=== PATIENT | male | born 1980 | race Caucasian/White ===

== ENCOUNTER 2018-04-06 13:42 | Emergency (ER) | payer OTHER, SELFPAY ==
[2018-04-06 13:59] VITALS: BP 121/81; PULSE 74; RESP 16; TEMP 36.7; O2SAT 97; BMI 29.0
[2018-04-06 17:26] LABS: Add Manual Diff / Slide Review NO; Basophils Percent Auto 0.7 % (0-2); Eosinophils Percent Auto 1.7 % (2-4); Hematocrit 48.8 % (41-53); Hemoglobin 17.2 g/dL (13.5-17.5); Lymphocytes Percent Auto 21.6 % (25-40); Mean Corpuscular HGB Conc 35.3 % (30-36); Mean Corpuscular Hemoglobin 29.2 PG (26-34); Mean Corpuscular Volume 82.9 fL (80-100); Neutrophils Absolute Auto 6700 /uL (3000-5900); Platelet Count 234 X10^3/uL (150-400); White Blood Cell Count 9.7 X10^3/uL (4.5-11.0)
[2018-04-06 17:38] LABS: Alanine Aminotransferase 27 IU/L (21-72); Albumin 4.9 g/dL (3.5-5.0); Albumin Globulin Ratio 1.7 (1.0-2.8); Alkaline Phosphatase 69 U/L (38-126); Aspartate Aminotransferase 25 IU/L (17-59); BUN Creatinine Ratio 15.7 (6-22); Bilirubin Total 0.7 mg/dL (0.2-1.3); Blood Urea Nitrogen 11 mg/dL (9-20); Calcium 9.5 mg/dL (8.4-10.2); Carbon Dioxide 31 mmol/L (22-32); Chloride 102 mmol/L (98-107); Estimated Glomerular Filt Rate > 60.0 mL/min (>60); Globulin 2.9 g/dL (1.7-4.1); Glucose 86 mg/dL (70-100); HEMOLYSIS 17 (0-50); Potassium 4.3 mmol/L (3.4-5.1); Sodium 144 mmol/L (137-145); Total Protein 7.8 g/dL (6.3-8.2)
[2018-04-06 18:26] LABS: HIV 1 and 2 Antibody NEGATIVE (NEGATIVE)
--- NOTE | 2018-04-06 18:39 | PC.NURSE ---
patient check updated patient of wait.
[2018-04-06 18:45] VITALS: BP 115/80; PULSE 66; RESP 16; O2SAT 98
[2018-04-06 19:05] LABS: Urine N gonorrhoeae NOT DETECTED
[2018-04-06 19:06] LABS: Urine Chlamydia NOT DETECTED
--- NOTE | 2018-04-06 19:29 | ED_ITS ---
HPI - General Adult <MARY Anderson - Last Filed: 04/06/18 21:41> General Chief complaint: Blood/Body fluid exposure Stated complaint: POSS HIV EXPOSURE Time Seen by Provider: 04/06/18 16:21 Source: patient Mode of arrival: ambulatory Limitations: no limitations History of Present Illness HPI narrative: 37-year-old male with history of hypertension and is a nonsmoker here for concern of possible exposure to HIV. He states that he cut himself to the inguinal area while he was shaving yesterday. He then reports that he had unprotected and all sex yesterday with another man last night. He states he does not know his partner well and does not know his HIV status. He denies any complaints or pain at today. He desires to have prophylaxis for HIV. He denies any anal bleeding or discomfort today. No other concerns or complaints Related Data Home Medications Medication Instructions Recorded Confirmed lorazepam [Ativan] 2.5 mg #0 07/07/16 propranolol #0 07/07/16 sertraline [Zoloft] 1.5 tab #0 07/07/16 Previous Rx's Medication Instructions Recorded dolutegravir 50 mg PO DAILY #28 tab 04/06/18 emtricitabine-tenofovir (TDF) 1 tab PO DAILY #28 tab 04/06/18 Allergies Allergy/AdvReac Type Severity Reaction Status Date / Time No Known Allergies Allergy Uncoded 04/06/18 14:03 Review of Systems <MAYR Anderson - Last Filed: 04/06/18 21:41> Review of Systems Prophylaxis for HIV exposure Constitutional Denies chills, Denies fever(s), Denies lethargy and Denies weakness Eyes Denies change in vision, Denies eye discharge, Denies irritation and Denies loss of vision ENT Ears, Nose, Mouth, and Throat: Denies change in voice, Denies neck pain and Denies sore throat Cardiovascular Denies chest pain, Denies irregular heart rhythm, Denies lightheadedness, Denies palpitations, Denies dyspnea, Denies dyspnea on exertion and Denies orthopnea Respiratory Denies cough, Denies dyspnea, Denies dyspnea on exertion and Denies wheezing Gastrointestinal Gastrointestinal: Denies abdominal pain, Denies change in bowel habits, Denies diarrhea, Denies nausea and Denies vomiting Genitourinary Denies hematuria, Denies flank pain, Denies urinary incontinence and Denies urinary urgency Musculoskeletal Denies neck pain Integumentary/Breasts Denies pruritus, Denies erythema, Denies rash and Denies wounds Neurologic Denies loss of vision and Denies weakness Endocrine Denies palpitations Hematologic/Lymphatic Denies easy bruising Allergic/Immunologic Denies wheezing Exam <MARY Anderson - Last Filed: 04/06/18 21:41> Initial Vital Signs Initial Vital Signs: Vital Signs Temperature 98.0 F 04/06/18 13:59 Pulse Rate 74 04/06/18 13:59 Respiratory Rate 16 04/06/18 13:59 Blood Pressure 121/81 04/06/18 13:59 Pulse Oximetry 97 04/06/18 13:59 Const General: cooperative and well developed Nutritional Appearance: well nourished Orientation: alert, awake, oriented x3 and not confused HENMT Mouth: oral mucosae normal and moist mucous membranes Eyes Conjunctivae: conjunctivae normal Sclera: sclerae normal Pupils: PERRL EOM: EOM intact bilaterally Resp Effort & Inspection: normal respiratory effort, able to speak in complete sentences, no respiratory distress and no use of accessory muscles Auscultation: clear to auscultation bilaterally, no rales, no rhonchi and no wheezes Cardio Rate: regular rate Rhythm: regular rhythm Heart Sounds: no click, no gallops, no murmurs and no rubs Pulses: normal peripheral pulses GI Inspection: non-distended Palpation: soft, no hepatosplenomegaly, No guarding, No pulsatile mass and No tender Auscultation: normal bowel sounds Skin General: no rashes or lesions noted, No jaundice and No petechiae Neuro General: alert, oriented x3, gait normal and no focal motor deficits Speech: speech normal <Nelson Singh DO - Last Filed: 04/07/18 06:48> Initial Vital Signs Initial Vital Signs: Vital Signs Temperature 98.0 F 04/06/18 13:59 Pulse Rate 74 04/06/18 13:59 Respiratory Rate 16 04/06/18 13:59 Blood Pressure 121/81 04/06/18 13:59 Pulse Oximetry 97 04/06/18 13:59 Course <MARY Anderson - Last Filed: 04/06/18 21:41> Orders Ordered: Discontinued Medications Dolutegravir Sodium (Tivicay) 50 mg PO NOW ONE Stop: 04/06/18 17:48 Emtricitabine/Tenofovir (Truvada 200 Mg-300 Mg Tablet) 1 each PO NOW ONE Stop: 04/06/18 17:48 Vital Signs - 8 hr 04/06/18 13:59 04/06/18 18:45 Temperature 98.0 F Pulse Rate 74 66 Respiratory Rate 16 16 Blood Pressure 121/81 Blood Pressure [Right Arm] 115/80 Pulse Oximetry 97 98 <Nelson Singh DO - Last Filed: 04/07/18 06:48> Orders Ordered: Discontinued Medications Dolutegravir Sodium (Tivicay) 50 mg PO NOW ONE Stop: 04/06/18 17:48 Emtricitabine/Tenofovir (Truvada 200 Mg-300 Mg Tablet) 1 each PO NOW ONE Stop: 04/06/18 17:48 Vital Signs - 8 hr 04/06/18 13:59 04/06/18 18:45 Temperature 98.0 F Pulse Rate 74 66 Respiratory Rate 16 16 Blood Pressure 121/81 Blood Pressure [Right Arm] 115/80 Pulse Oximetry 97 98 Medical Decision Making <MARY Anderson - Last Filed: 04/06/18 21:41> Lab Data Result diagrams: 04/06/18 17:15 04/06/18 17:15 Lab Results 04/06/18 04/06/18 04/06/18 Range/Units 17:15 17:15 17:15 WBC 9.7 (4.5-11.0) X10^3/uL RBC 5.90 (4.5-5.9) X10^6/uL Hgb 17.2 (13.5-17.5) g/dL Hct 48.8 (41-53) % MCV 82.9 (80-100) fL MCH 29.2 (26-34) PG MCHC 35.3 (30-36) % RDW 13.0 (11.6-14.8) % Plt Count 234 (150-400) X10^3/uL Neut % (Auto) 69.0 (50-75) % Lymph % (Auto) 21.6 L (25-40) % [place] % (Auto) 7.0 (3-14) % Eos % (Auto) 1.7 L (2-4) % Baso % (Auto) 0.7 (0-2) % Neut # (Auto) 6700 H (9640-2969) /uL Sodium 144 (137-145) mmol/L Potassium 4.3 (3.4-5.1) mmol/L Chloride 102 (98-107) mmol/L Carbon Dioxide 31 (22-32) mmol/L BUN 11 (9-20) mg/dL Creatinine 0.70 (0.66-1.25) mg/dL Estimated GFR > 60.0 (>60) mL/min BUN/Creatinine Ratio 15.7 (6-22) Glucose 86 (70-100) mg/dL Calcium 9.5 (8.4-10.2) mg/dL Total Bilirubin 0.7 (0.2-1.3) mg/dL AST 25 (17-59) IU/L ALT 27 (21-72) IU/L Alkaline Phosphatase 69 (38-126) U/L Total Protein 7.8 (6.3-8.2) g/dL Albumin 4.9 (3.5-5.0) g/dL Globulin 2.9 (1.7-4.1) g/dL Albumin/Globulin Ratio 1.7 (1.0-2.8) Ur Chlamydia DNA (PCR) HIV 1&2 Antibody Negative (NEGATIVE) N gonorrhoeae DNA (PCR) 04/06/18 Range/Units 17:20 WBC (4.5-11.0) X10^3/uL RBC (4.5-5.9) X10^6/uL Hgb (13.5-17.5) g/dL Hct (41-53) % MCV (80-100) fL MCH (26-34) PG MCHC (30-36) % RDW (11.6-14.8) % Plt Count (150-400) X10^3/uL Neut % (Auto) (50-75) % Lymph % (Auto) (25-40) % [place] % (Auto) (3-14) % Eos % (Auto) (2-4) % Baso % (Auto) (0-2) % Neut # (Auto) (8229-0093) /uL Sodium (137-145) mmol/L Potassium (3.4-5.1) mmol/L Chloride (98-107) mmol/L Carbon Dioxide (22-32) mmol/L BUN (9-20) mg/dL Creatinine (0.66-1.25) mg/dL Estimated GFR (>60) mL/min BUN/Creatinine Ratio (6-22) Glucose (70-100) mg/dL Calcium (8.4-10.2) mg/dL Total Bilirubin (0.2-1.3) mg/dL AST (17-59) IU/L ALT (21-72) IU/L Alkaline Phosphatase (38-126) U/L Total Protein (6.3-8.2) g/dL Albumin (3.5-5.0) g/dL Globulin (1.7-4.1) g/dL Albumin/Globulin Ratio (1.0-2.8) Ur Chlamydia DNA (PCR) Not detected HIV 1&2 Antibody (NEGATIVE) N gonorrhoeae DNA (PCR) Not detected MDM Narrative Medical decision making narrative: CBC and Chem panel were obtained and were unremarkable. HIV antibodies were obtained were negative for both HIV 1 and 2 urine Chlamydia and gonorrhea were obtained and were negative. Hepatitis studies are pending. He is prescribed dolutegravir and truvada. Follow up with primary care provider next week return emergency room for any worsening symptoms. <Nelson Singh, DO - Last Filed: 04/07/18 06:48> Lab Data Lab Results 04/06/18 04/06/18 04/06/18 Range/Units 17:15 17:15 17:15 WBC 9.7 (4.5-11.0) X10^3/uL RBC 5.90 (4.5-5.9) X10^6/uL Hgb 17.2 (13.5-17.5) g/dL Hct 48.8 (41-53) % MCV 82.9 (80-100) fL MCH 29.2 (26-34) PG MCHC 35.3 (30-36) % RDW 13.0 (11.6-14.8) % Plt Count 234 (150-400) X10^3/uL Neut % (Auto) 69.0 (50-75) % Lymph % (Auto) 21.6 L (25-40) % [place] % (Auto) 7.0 (3-14) % Eos % (Auto) 1.7 L (2-4) % Baso % (Auto) 0.7 (0-2) % Neut # (Auto) 6700 H (9645-2587) /uL Sodium 144 (137-145) mmol/L Potassium 4.3 (3.4-5.1) mmol/L Chloride 102 (98-107) mmol/L Carbon Dioxide 31 (22-32) mmol/L BUN 11 (9-20) mg/dL Creatinine 0.70 (0.66-1.25) mg/dL Estimated GFR > 60.0 (>60) mL/min BUN/Creatinine Ratio 15.7 (6-22) Glucose 86 (70-100) mg/dL Calcium 9.5 (8.4-10.2) mg/dL Total Bilirubin 0.7 (0.2-1.3) mg/dL AST 25 (17-59) IU/L ALT 27 (21-72) IU/L Alkaline Phosphatase 69 (38-126) U/L Total Protein 7.8 (6.3-8.2) g/dL Albumin 4.9 (3.5-5.0) g/dL Globulin 2.9 (1.7-4.1) g/dL Albumin/Globulin Ratio 1.7 (1.0-2.8) Ur Chlamydia DNA (PCR) HIV 1&2 Antibody Negative (NEGATIVE) N gonorrhoeae DNA (PCR) 04/06/18 Range/Units 17:20 WBC (4.5-11.0) X10^3/uL RBC (4.5-5.9) X10^6/uL Hgb (13.5-17.5) g/dL Hct (41-53) % MCV (80-100) fL MCH (26-34) PG MCHC (30-36) % RDW (11.6-14.8) % Plt Count (150-400) X10^3/uL Neut % (Auto) (50-75) % Lymph % (Auto) (25-40) % [place] % (Auto) (3-14) % Eos % (Auto) (2-4) % Baso % (Auto) (0-2) % Neut # (Auto) (8677-2394) /uL Sodium (137-145) mmol/L Potassium (3.4-5.1) mmol/L Chloride (98-107) mmol/L Carbon Dioxide (22-32) mmol/L BUN (9-20) mg/dL Creatinine (0.66-1.25) mg/dL Estimated GFR (>60) mL/min BUN/Creatinine Ratio (6-22) Glucose (70-100) mg/dL Calcium (8.4-10.2) mg/dL Total Bilirubin (0.2-1.3) mg/dL AST (17-59) IU/L ALT (21-72) IU/L Alkaline Phosphatase (38-126) U/L Total Protein (6.3-8.2) g/dL Albumin (3.5-5.0) g/dL Globulin (1.7-4.1) g/dL Albumin/Globulin Ratio (1.0-2.8) Ur Chlamydia DNA (PCR) Not detected HIV 1&2 Antibody (NEGATIVE) N gonorrhoeae DNA (PCR) Not detected Discharge Plan Departure Patient Disposition: Home Clinical Impression: Possible exposure to STD Discharge Date/Time: 04/06/18 19:40 Interventions: ED Discharge Assessment Last Done: 04/06/18 19:40 Instructions: DI for HIV Activity Restrictions/Additional Instructions: Laboratory results today were unremarkable. HIV antibodies were negative. Chlamydia and gonorrhea test were negative. You are provided with prescription for HIV prophylaxis use as directed. Follow up with primary care provider next week for re-evaluation. For any worsening symptoms return to the emergency room. Prescriptions: New emtricitabine-tenofovir (TDF) 200-300 mg tablet 1 tab PO DAILY Qty: 28 RF: 0 dolutegravir 50 mg tablet 50 mg PO DAILY Qty: 28 RF: 0 No Action sertraline [Zoloft] 100 MG tablet 1.5 tab Qty: 0 RF: 0 propranolol 40 MG tablet Qty: 0 RF: 0 lorazepam [Ativan] 1 MG tablet 2.5 mg Qty: 0 RF: 0 Referrals: Nirmala Dawkins MD [Primary Care Provider] - <Nelson Singh DO - Last Filed: 04/07/18 06:48> Cosign ED Attending Thalia Attestation: I was available for consultation during this patient's emergency department encounter
[2018-04-10 08:21] LABS: Hepatitis A Antibody IgM NONREACTIVE; Hepatitis Acute Panel Interp 0.01; Hepatitis B Core Antibody IgM NONREACTIVE; Hepatitis B Surface Antigen NONREACTIVE; Hepatitis C Antibody NONREACTIVE
== END 2018-04-06 19:40 | disposition home or self-care (01) ==
PROVIDERS: Emergency Provider Nurse Practitioner Family; PCP Family Medicine
DX: Z20.2 Contact with and (suspected) exposure to infections with a predominantly sexual mode of transmission (principal)
CPT/HCPCS: 80053; 80074; 85025; 86703; 87491; 87591; 99282; 99283

== ENCOUNTER → 2020-11-09 10:32 | Outpatient (CLI) | payer OTHER, SELFPAY ==
[2020-11-09] MEDS: COVID-19 VACC #1, MRNA(MOD) 100 MCG/0.5 ML VIAL IM (10:39)
== END ==
PROVIDERS: PCP Family Medicine; Visit Provider Internal Medicine
DX: Z23 Encounter for immunization (principal)
CPT/HCPCS: 0011A; 91301

== ENCOUNTER → 2020-12-08 10:28 | Outpatient (CLI) | payer OTHER, SELFPAY ==
[2020-12-08] MEDS: COVID-19 VACC #2, MRNA(MOD) 100 MCG/0.5 ML VIAL IM (10:39)
== END ==
PROVIDERS: PCP Family Medicine; Visit Provider Internal Medicine
DX: Z23 Encounter for immunization (principal)
CPT/HCPCS: 0012A; 91301

== ENCOUNTER → 2023-03-20 07:52 | Outpatient (CLI) | payer OTHER, SELFPAY ==
[2023-03-20 08:51] LABS: Add Manual Diff / Slide Review NO; Basophils Absolute Auto 100 /uL (0-100); Basophils Percent Auto 0.8 % (0-2); Eosinophils Absolute Auto 200 /uL (0-450); Eosinophils Percent Auto 2.5 % (2-4); Hematocrit 46.1 % (41-53); Hemoglobin 16.1 g/dL (13.5-17.5); Lymphocytes Absolute Auto 1900 /uL (1100-4500); Lymphocytes Percent Auto 25.8 % (25-40); Mean Corpuscular HGB Conc 34.9 % (30-36); Mean Corpuscular Volume 83.1 fL (80-100); Monocytes Absolute Auto 500 /uL (0-900); Monocytes Percent Auto 6.7 % (3-14); Neutrophils Absolute Auto 4700 /uL (1500-7000); Neutrophils Percent Auto 64.2 % (50-75); Platelet Count 184 X10^3/uL (150-400); Red Blood Cell Count 5.55 X10^6/uL (4.5-5.9); Red Cell Distribution Width 13.1 % (11.6-14.8); White Blood Cell Count 7.3 X10^3/uL (4.5-11.0)
[2023-03-20 09:23] LABS: Alanine Aminotransferase 24 IU/L (<50); Albumin 4.4 g/dL (3.5-5.0); Albumin Globulin Ratio 1.6 (1.0-2.8); Alkaline Phosphatase 64 U/L (38-126); Aspartate Aminotransferase 27 IU/L (17-59); BUN Creatinine Ratio 16.3 (6-22); Bilirubin Total 0.6 mg/dL (0.2-1.3); Blood Urea Nitrogen 13 mg/dL (9-20); Calcium 9.2 mg/dL (8.4-10.2); Carbon Dioxide 27 mmol/L (22-32); Chloride 103 mmol/L (98-107); Cholesterol 187 mg/dL (140-199); Estimated Glomerular Filt Rate > 60 mL/min (>60); Globulin 2.8 g/dL (1.7-4.1); Glucose 95 mg/dL (70-100); HDL Cholesterol 32 mg/dL (40-60); HEMOLYSIS < 15 (0-50); LDL Cholesterol Calculated 102 mg/dL (<100); Potassium 4.4 mmol/L (3.4-5.1); Sodium 138 mmol/L (137-145); Total Protein 7.2 g/dL (6.3-8.2); Triglycerides 263 mg/dL (35-150)
== END ==
PROVIDERS: PCP Family Medicine; Referring Provider Family Medicine; Visit Provider Family Medicine
DX: Z00.00 Encounter for general adult medical examination without abnormal findings (principal)
CPT/HCPCS: 36415; 80053; 80061; 85025

== ENCOUNTER 2024-05-30 11:43 | Emergency (ER) | payer OTHER, SELFPAY ==
[2024-05-30] VITALS (8 sets, daily range): BP systolic 110–140; BP diastolic 71–80; PULSE 57–64; RESP 11–18; TEMP 36.6; O2SAT 93–100; BMI 30.7
--- NOTE | 2024-05-30 12:08 | ED.SOB ---
HPI - SOB/Dyspnea General Chief Complaint: Arrhythmia/Palpitations Stated Complaint: Arrythmia, SOB, dizziness Time Seen by Provider: 05/30/24 12:06 History of Present Illness HPI Narrative: Patient is a 43-year-old male presenting today with just ongoing issues. He has had some sort of arrhythmia for the last 11 years but pretty well-controlled he takes no medications for it he has not had any syncopal episodes. He has had some shortness of breath some dizziness some palpitations. Called his provider today who recommended he come to the ED for evaluation. He denies fever or chills. No chest pain really no new symptoms today. No abdominal pain nausea or vomiting Related Data Home Medications Medication Instructions Recorded Confirmed propranolol 40 mg tablet ##0 07/07/16 03/19/23 sertraline 100 mg tablet (Zoloft) 1.5 tab ##0 07/07/16 03/19/23 lorazepam 1 mg tablet (Ativan) 3 mg PO #0 tabs 03/19/23 03/19/23 Allergies Allergy/AdvReac Type Severity Reaction Status Date / Time No Known Drug Allergies Allergy Verified 03/19/23 11:13 Patient History Medical History Family history of hypertension Generalized anxiety disorder (~1994) Well adult on routine health check Surgical History Anesthesia Status post tonsillectomy and adenoidectomy (1984) Family History Brother Age: 47 Hypertension Father Age: 73 Hypertension Hyperlipidemia Grandfather Cancer Heart disease Stroke Diabetes mellitus Mother Cancer Heart disease Mental health problem Grandfather Heart disease Enlarged heart Grandmother Cancer Lung cancer Hypertension Stroke Grandmother No problems noted. Social History Smoking Status: Never smoker Smoking Status: Never smoker alcohol intake frequency: 0-2 drinks per day Substance Use Type: does not use Exam Initial Vital Signs Initial Vital Signs: Vital Signs Pulse Rate 61 05/30/24 12:08 Respiratory Rate 12 05/30/24 12:08 Pulse Oximetry 100 05/30/24 12:08 GENERAL: Alert well-appearing 43-year-old male and in no acute distress. HEENT: Head atraumatic,EOMI, pupils reactive, face symmetric, moist mucous membranes CARDIOVASCULAR: Regular rate and rhythm without murmurs, rubs or gallops. RESPIRATORY: Breath sounds equal bilaterally, no wheezes rales or rhonchi. ABDOMEN: Soft, nontender. Normoactive bowel sounds all 4 quadrants. No guarding or rebound. EXTREMITIES: Normal range of motion, no clubbing or edema. Neurovascularly intact NEUROLOGICAL: Alert and oriented x4.Normal gait and speech. Cranial nerves II through XII grossly intact. SKIN: Warm, dry, no laceration, no petechiae, no rashes or lesions. Course Orders Ordered: ED Orders 05/30/24 12:15 Complete Blood Count AUTO DIFF Stat Comprehensive Metabolic Panel Stat Magnesium Stat NT-proBNP (BNP-Adult 18+) Stat PTT Partial Thromboplastin Pierre Stat Prothrombin Time INR Stat Troponin & CK Cardiac Panel Stat 05/30/24 12:20 XR chest 1V Stat EKG-12 Lead Stat Vital Signs Vital signs: Vital Signs - 8 hr 05/30/24 12:08 05/30/24 12:13 05/30/24 12:30 Temperature 98 F Pulse Rate 61 62 60 Respiratory Rate 12 18 13 Blood Pressure 140/80 Pulse Oximetry 100 98 98 Oxygen Delivery Method Room Air 05/30/24 13:00 05/30/24 13:30 05/30/24 13:34 Temperature Pulse Rate 60 57 L Respiratory Rate 12 11 L Blood Pressure 119/73 Pulse Oximetry 96 95 Oxygen Delivery Method 05/30/24 13:34 05/30/24 14:00 05/30/24 14:00 Temperature Pulse Rate 61 64 Respiratory Rate 16 13 Blood Pressure 110/71 Pulse Oximetry 94 94 Oxygen Delivery Method 05/30/24 14:19 Temperature Pulse Rate 62 Respiratory Rate 14 Blood Pressure 110/71 Pulse Oximetry 93 Oxygen Delivery Method Room Air MDM - SOB/Dyspnea Lab Data 05/30/24 12:15 05/30/24 12:15 Labs: Lab Results 05/30/24 Range/Units 12:15 WBC 7.3 (4.5-11.0) X10^3/uL RBC 5.55 (4.5-5.9) X10^6/uL Hgb 16.2 (13.5-17.5) g/dL Hct 45.6 (41-53) % MCV 82.2 (80-100) fL MCH 29.1 (26-34) PG MCHC 35.5 (30-36) % RDW 13.2 (11.6-14.8) % Plt Count 201 (150-400) X10^3/uL Neut % (Auto) 65.7 (50-75) % Lymph % (Auto) 25.0 (25-40) % [place] % (Auto) 7.0 (3-14) % Eos % (Auto) 1.7 L (2-4) % Baso % (Auto) 0.6 (0-2) % Neut # (Auto) 4800 (2629-0275) /uL Lymph # (Auto) 1800 (4872-6643) /uL [place] # (Auto) 500 (0-900) /uL Eos # (Auto) 100 (0-450) /uL Baso # (Auto) 0 (0-100) /uL PT 11.6 (9.4-12.5) SECONDS INR 1.0 (0.9-1.3) APTT 33 (25.1-36.5) SECONDS Sodium 139 (137-145) mmol/L Potassium 4.5 (3.4-5.1) mmol/L Chloride 106 (98-107) mmol/L Carbon Dioxide 25 (22-32) mmol/L BUN 15 (9-20) mg/dL Creatinine 0.67 (0.66-1.25) mg/dL Estimated GFR > 60 (>60) mL/min BUN/Creatinine Ratio 22.4 H (6-22) Glucose 97 (70-100) mg/dL Calcium 9.2 (8.4-10.2) mg/dL Magnesium 2.0 (1.6-2.3) mg/dL Total Bilirubin 0.6 (0.2-1.3) mg/dL AST 29 (17-59) IU/L ALT 21 (<50) IU/L Alkaline Phosphatase 65 (38-126) U/L Total Creatine Kinase 59 (55-170) U/L Troponin I < 0.012 (0.01-0.034) ng/mL NT-Pro-B Natriuret Pep 33 (<125) pg/mL Total Protein 7.3 (6.3-8.2) g/dL Albumin 4.5 (3.5-5.0) g/dL Globulin 2.8 (1.7-4.1) g/dL Albumin/Globulin Ratio 1.6 (1.0-2.8) Imaging Data Chest x-ray: Radiologist's Impression: PROCEDURE: XR CHEST 1V INDICATIONS: chest pain TECHNIQUE: One view of the chest was acquired. COMPARISON: None. FINDINGS: Surgical changes and devices: None. Lungs and pleura: Lungs are clear. No pleural effusions or pneumothorax. Mediastinum: Mediastinal contours appear normal. Heart size is normal. Bones and chest wall: No suspicious bony lesions. Overlying soft tissues appear unremarkable. IMPRESSION: No acute cardiopulmonary abnormality is seen. Dictated by: Vishal Minor M.D. on 05/30/2024 at 13:31 ECG Data Attestation: I personally reviewed and interpreted this ECG as follows: Prior ECG tracings: not available for review Interpretation: Normal sinus rhythm rate 62 OH interval 168 QRS [address] changes T-wave inversion noted in lead 3 only no priors to compare MDM Narrative Medical decision making narrative: Patient 43-year-old male presenting today with palpitations. He has had no syncopal episode no real chest pain it has not any worse today she has been ongoing. Workup in the emergency department overall reassuring. No leukocytosis anemia or electrolyte abnormality troponin is negative Chest x-ray has been reviewed and negative EKG reviewed without ischemia or arrhythmia Patient has had intermittent PVCs but no evidence of bigeminy trigeminy or other arrhythmia Patient is relatively asymptomatic. He has been having intermittent palpitations for some time recommend outpatient workup and follow-up. At this time I see no need for any further workup or evaluation Discharge Plan Departure Patient Disposition: Home Clinical Impression: Asymptomatic PVCs Instructions: Premature Ventricular Beats Activity Restrictions/Additional Instructions: *You have been diagnosed with PVCs *What to do: At this time please talk with your primary care provider in regards to further workup and possible Holter monitor *Continue to take medications as directed *Follow up with your primary care provider in 2-3 days or call [phone] *Return to ER if you should have increased chest pain palpitations shortness of breath or any new, worsening or concerning symptoms Prescriptions: No Action sertraline [Zoloft] 100 MG tablet 1.5 tab Qty: 0 propranolol 40 MG tablet Qty: 0 lorazepam [Ativan] 1 mg tablet 3 mg PO Qty: 0 Referrals: Charles Welsh, [Primary Care Provider] - Stand Alone Forms: Patient Portal/API/Survey
--- NOTE | 2024-05-30 12:20 | DI.RAD.S_ITS ---
PROCEDURE: XR CHEST 1V INDICATIONS: chest pain TECHNIQUE: One view of the chest was acquired. COMPARISON: None. FINDINGS: Surgical changes and devices: None. Lungs and pleura: Lungs are clear. No pleural effusions or pneumothorax. Mediastinum: Mediastinal contours appear normal. Heart size is normal. Bones and chest wall: No suspicious bony lesions. Overlying soft tissues appear unremarkable. IMPRESSION: No acute cardiopulmonary abnormality is seen. Dictated by: Vishal Minor M.D. on 05/30/2024 at 13:31 Approved by: Vishal Minor M.D. on 05/30/2024 at 13:32
--- NOTE | 2024-05-30 12:20 | EKG_ITS ---
[facility] [id number] [place] [id number] Test Date: 2024-05-30 Pat Name: Flaco Martinez Department: Room: Gender: Male Sas Programmer: TIMOTHY : 1980 Requested By: Order Number: [id number] Reading MD: Octavio Herrmann Measurements Intervals [place] Rate: 62 P: 15 TN: 186 QRS: -24 QRSD: 90 T: 7 QT: 384 QTc: 389 Interpretive Statements Poor data quality, interpretation may be adversely affected Normal sinus rhythm Minimal voltage criteria for LVH, may be normal variant ( R in aVL ) Electronically Signed On 06-03-2024 18:48:51 PST by Octavio Herrmann
[2024-05-30 12:54] LABS: Add Manual Diff / Slide Review NO; Basophils Absolute Auto 0 /uL (0-100); Basophils Percent Auto 0.6 % (0-2); Eosinophils Absolute Auto 100 /uL (0-450); Eosinophils Percent Auto 1.7 % (2-4); Hematocrit 45.6 % (41-53); Hemoglobin 16.2 g/dL (13.5-17.5); Lymphocytes Absolute Auto 1800 /uL (1100-4500); Mean Corpuscular HGB Conc 35.5 % (30-36); Mean Corpuscular Hemoglobin 29.1 PG (26-34); Mean Corpuscular Volume 82.2 fL (80-100); Monocytes Absolute Auto 500 /uL (0-900); Neutrophils Absolute Auto 4800 /uL (1500-7000); Neutrophils Percent Auto 65.7 % (50-75); Platelet Count 201 X10^3/uL (150-400); Red Blood Cell Count 5.55 X10^6/uL (4.5-5.9); Red Cell Distribution Width 13.2 % (11.6-14.8); White Blood Cell Count 7.3 X10^3/uL (4.5-11.0)
[2024-05-30 13:01] LABS: Prothrombin Time 11.6 SECONDS (9.4-12.5)
[2024-05-30 13:04] LABS: PTT Partial Thromboplastin Tim 33 SECONDS (25.1-36.5)
[2024-05-30 13:06] LABS: Alanine Aminotransferase 21 IU/L (<50); Albumin 4.5 g/dL (3.5-5.0); Albumin Globulin Ratio 1.6 (1.0-2.8); Alkaline Phosphatase 65 U/L (38-126); Aspartate Aminotransferase 29 IU/L (17-59); BUN Creatinine Ratio 22.4 (6-22); Bilirubin Total 0.6 mg/dL (0.2-1.3); Blood Urea Nitrogen 15 mg/dL (9-20); Calcium 9.2 mg/dL (8.4-10.2); Carbon Dioxide 25 mmol/L (22-32); Chloride 106 mmol/L (98-107); Creatine Kinase 59 U/L (55-170); Estimated Glomerular Filt Rate > 60 mL/min (>60); Globulin 2.8 g/dL (1.7-4.1); Glucose 97 mg/dL (70-100); HEMOLYSIS 69 (0-50); Potassium 4.5 mmol/L (3.4-5.1); Sodium 139 mmol/L (137-145); Total Protein 7.3 g/dL (6.3-8.2)
[2024-05-30 13:17] LABS: NT-proBNP (BNP-Adult 18+) 33 pg/mL (<125); Troponin I < 0.012 ng/mL (0.01-0.034)
== END 2024-05-30 14:22 | disposition home or self-care (01) ==
PROVIDERS: Emergency Provider Emergency Medicine; PCP Family Medicine
DX: I49.3 Ventricular premature depolarization (principal); R07.9 Chest pain, unspecified; R06.02 Shortness of breath
CPT/HCPCS: 36415; 71045; 80053; 82550; 83735; 83880; 84484; 85025; 85610; 85730; 93005; 99283; 99284

== ENCOUNTER → 2024-12-23 13:22 | Outpatient (CLI) | payer OTHER, SELFPAY ==
--- NOTE | 2024-12-23 13:23 | DI.RAD.S_ITS ---
PROCEDURE: XR RIBS LT MIN 3V W CXR1V INDICATIONS: fall onto ribs TECHNIQUE: 4 views of the ribs were acquired, along with a single view chest. COMPARISON: None. FINDINGS: Surgical changes and devices: None. Bones and chest wall: No fractures or dislocations. No suspicious bony lesions. Overlying soft tissues appear unremarkable. Lungs and pleura: No pleural effusions or pneumothorax. Lungs appear clear. Mediastinum: Mediastinal contours appear normal. Heart size is normal. IMPRESSION: No displaced rib fracture or pneumothorax. Dictated by: Thomas Flores M.D. on 12/23/2024 at 14:55 Approved by: Thomas Flores M.D. on 12/23/2024 at 14:56
== END ==
PROVIDERS: PCP Family Medicine; Referring Provider Chiropractor; Visit Provider Chiropractor
DX: S20.212A Contusion of left front wall of thorax, initial encounter (principal); W19.XXXA Unspecified fall, initial encounter
CPT/HCPCS: 71101